=== PATIENT | female | born 1960 | race Caucasian/White ===

== ENCOUNTER → 2023-01-20 | Outpatient (CLI) | payer MEDICARE ==
[2023-01-20 10:12] VITALS: BP 143/93; PULSE 91; RESP 16; TEMP 97.9
--- NOTE | 2023-01-20 13:11 | P.PAINPG ---
PQRS Measure Charge Sheet Comment: HISTORY OF PRESENT ILLNESS: 62 yr old female as a referral from Dr Sinha presents today w severe and chronic LBP x 3 yrs secondary to anterolisthesis, DDD and facet arthropathy without myelopathy for evaluation. Pt states she underwent a BL RFA L4-L5 L5-S1 in [place] in Jul 2022 where she experienced 70% pain relief x 5-6 mo s/p procedure. Pt states pain level is provoked at 7 /10 in intensity, constant, localized in the lower lumbar spine, in character w shooting pain towards the L & R midline. Pain is provoked by weight bearing activity. Pain is alleviated by chiropractic treatments 15 yrs ago, physician guided home exercises from Dr Sinha 5 times weekly x 3 mo, heat, ice, medications (Xtampza, Percocet, Neurontion), repositioning and rest. Oswestry axial pain score at 26 . PMH: OA, Hyperlipidemia, Hypothyroidism, Peripheral Neuropathy, GERD PSH: BL RFA L3-L5 (2020, 2021), Uterine Ablation (1995) SH: Negative x 3. Lives w fiance. FH: Uncle- CA. Aunt - Breast CA. Mo- MS. Fa- MS. All: See list Meds: See list REVIEW OF ORGAN SYSTEMS: CONSTITUTIONAL: No fevers or chills. No recent weight loss. NEUROLOGICAL: + numbness and tingling along the distal extremities. No seizure disorders or headaches. MUSCULOSKELETAL: + pain PSYCHIATRIC: Denies current depression or suicidal thoughts. Physical Examinations : Constitutional : Cooperative , not in acute distress . Neurologic : Cranial nerve II to XII intact. No focal neurological deficits. Psychiatric : alert & oriented x 3. Matching mood & appropriate affect. Judgment & insight intact. Musculoskeletal : Cervical Spine Motor strength in the deltoid and biceps: Normal right side. Normal Left side Motor strength biceps and the wrist extensors: Normal right side . Normal left side Motor strength in the triceps muscle: Normal right side. Normal left side Deep tendon reflexes: Normal at the biceps. Normal at Brachioradialis. Normal at triceps Vertebral body tenderness to deep palpation over Cervical facet loading test: positive bilaterally Spurling test: positive bilaterally Neck distraction test: positive bilaterally Esme sign: positive bilaterally Lumbar spine Motor strength lower extremities ,thigh and legs 5/5 Right side , 5/5 Left side Deep tendon reflexes : Normal Knee Jerk. Normal Ankle Jerk Vertebral body tenderness over Menjivar Test positive Lumbar facet Loading Test: positive Right / positive Left over BL L4-L5, L5-S1 Range of motion of the lumbar spine Flexion 30 degrees, extension 10 degrees Straight Leg Raise test: Left/ Right positive at degree Yousif test: positive right / positive left. Severe tenderness over the Sacroiliac joint on the Right / Left sides Gaenslen test: positive bilaterally Seated flexion test: positive bilaterally. Sacral spine : Severe tenderness over the Sacroiliac joint: right side / left side Range of motion: Flexion of the lumbar spine <60 degrees Range of motion: Extension of the lumbar spine <20 degrees Gaenslen's Test positive Frandy's Test positive Yousif test: positive right side / left side Thigh Thrust Test Sacral Thrust Test Imaging: MRI noncontrast of the lumbar spine from 08/28/22 reviewed Assessment/ Plan : Lumbar anterolisthesis Recommendation of BL RFA L4-L5, L5-S1. Pt exhibited substantial pain relief w prior BL RFA L3-L5 procedure. Risks, benefits of procedure discussed and patient verbalized understanding. Admits to aspirin or anti- coagulant use or medical history of diabetes. Protocol for discontinuation/ continuation of medications rika procedure discussed. Minimal anesthesia provided, if clinically indicated, consisting of Versed and Fentanyl. All questions answered. I have spent greater than 30 minutes on patient care today. Dr Pruitt was available by phone for the evaluation of this patient. The time was used to review the medical records including relevant urine studies and Prescription history (MAPs), review of the available imaging, evaluation and examination of the patient, coordination of care with the medical staff and if applicable referring physicians, as well as creation of the medical record Controlled Substance Measures - Controlled Substance Measures Is patient prescribed a controlled substance at discharge?: No
== END ==
LOC: PNWHC3 09:08
PROVIDERS: ATTEND Specialist
DX: M51.37 Other intervertebral disc degeneration, lumbosacral region (principal); M43.16 Spondylolisthesis, lumbar region; G89.29 Other chronic pain
CPT/HCPCS: 99202

== ENCOUNTER → 2023-02-05 | Day surgery (SDC) | payer MEDICARE ==
[2023-02-02 10:51] VITALS: BMI 28.1
[~2023-02-05] MED LIST: LACTATED RINGERS 1,000 ML IV SCH; MIDAZOLAM 2 MG/2 ML VIAL ONE; ROPIVACAINE 5MG/ML 20ML VIAL ONE; fentaNYL (PF) 50 MCG/ML 2 ML AMP ONE; methylPREDNISolone ACETATE 40 MG/ML 1 ML VIAL ONE
[2023-02-05 08:32] VITALS: TEMP 98.2
--- NOTE | 2023-02-05 09:43 | P.PCN ---
Date of Procedure: 02/05/23 Procedure(s) Performed: PREOPERATIVE DIAGNOSIS: 1-Lumbar Spondylosis with Facet Arthropathy without myelopathy. 2- Lumber degenerative disc disease. POSTOPERATIVE DIAGNOSIS: 1- Lumbar Spondylosis with Facet Arthropathy without myelopathy. 2- Lumber degenerative disc disease. PROCEDURES : Bilateral Radiofrequency thermocoagulation, L3 , L4 , and L5 medial branch, with fluoroscopic guidance (fluoroscopy images available in the radiology department) ( to denervate the facet joint at bilateral L4-5 ,and L5-S1 levels ). ANESTHESIA: Monitored anesthesia care as per anesthesia department . EBL: Minimal PROCEDURE INDICATION: The patient with low back pain secondary to lumbar facet arthropathy who had more than 50% relief of her pain with previous diagnostic lumbar medial branch block with bupivacaine. PROCEDURE DESCRIPTION / TECHNIQUE: The patient was seen and identified in the preoperative area. Risks, benefits, complications, including but not limited to risk of infection ,bleeding , allergic reactions to the medications and no complete pain releife , and alternatives were discussed with the patient, the patient agreed to proceed with the procedure and signed the consent. IV was started. Vital signs remained stable throughout the procedure. Patient was taken to the OR and time out was completed. The patient was placed in the prone position on the procedure table. The lumber area was prepped and draped in the usual sterile fashion. . Vital signs were closely monitored during the procedure .IV sedation was used during the procedure to decrease patients anxiety. Using AP and then oblique fluoroscopy, the ``eye of the Too dog cor responding to the connection between the superior and transverse articular processes of right L3, L4, and L5 were identified, marked, and localized with 1% lidocaine. Subsequently, a 18 -os radiofrequency cannula with a 10- mm active tip was advanced guided by fluoroscopy to each of the``eyes of the Too dog at right L3, L4, and L5. Each site then underwent sensory testing at 50 Hz and 0 to 1 volt and motor testing at 2.5 Hz and 0 to 3 volt with local stimulation, but no radicular symptoms down the legs. Thereafter each sites underwent radiofrequency thermocoagulation at 80 degrees celsius for 90 seconds after injecting 0.5 ml of PF Ropivacaine 1ml, then after the thermocoagulation done , 1 ml of the block solution containing Depo-Medrol 20 mg and 3 ml of Ropivacaine 0.5% was injected at the right L3 , L4 , and L5 , levels after negative aspiration of CSF and blood and with no paresthesias. Cannulas were retracted while injecting lidocaine 1% until the needle is out. The same procedure was repeated at the level of Left L3, L4, and L5 levels. At the end of the procedure, the skin was cleansed and bandages were applied. COMPLICATIONS: No acute complications. DISPOSITION / PLANS: The patient was placed in a supine position and transferred to the recovery area in a stable condition for observation and was discharged from the recovery room after meeting discharge criteria. Home discharge instructions given to the patient by the staff. The patient was reexamined prior to discharge. The patient will schedule a follow up in the clinic in 2-4 weeks.
[2023-02-05 10:07] VITALS: BP 136/87; PULSE 77; RESP 14
--- NOTE | 2023-02-05 11:49 | FL ---
Intraoperative/procedural fluoroscopic services were provided. Total fluoroscopy time is 20 seconds w ith a total of 9 submitted images to PACS. Please see the operative/procedural note for further detai ls. DAP: [id number] mGym2
== END ==
LOC: ORPAIN 08:13
DX: M47.816 Spondylosis without myelopathy or radiculopathy, lumbar region (principal); M51.36 Other intervertebral disc degeneration, lumbar region; E78.5 Hyperlipidemia, unspecified; E07.9 Disorder of thyroid, unspecified; K21.9 Gastro-esophageal reflux disease without esophagitis; M19.90 Unspecified osteoarthritis, unspecified site; Z79.890 Hormone replacement therapy; Z91.040 Latex allergy status; Z79.899 Other long term (current) drug therapy
CPT/HCPCS: 64635; 64636; J2250; J1030; J3010; J2795

== ENCOUNTER → 2023-03-25 | Outpatient (CLI) | payer MEDICARE | LOC: PNWHC3 09:44 | PROVIDERS: ATTEND Anesthesiology | DX: Z53.9 Procedure and treatment not carried out, unspecified reason (principal) ==

== ENCOUNTER → 2023-08-04 | Outpatient (CLI) | payer MEDICARE ==
[2023-08-04 08:55] VITALS: BP 143/80; PULSE 102; RESP 17; TEMP 97.8
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
== END ==
LOC: WWCWWP 08:15
PROVIDERS: ATTEND Obstetrics & Gynecology
DX: Z12.31 Encounter for screening mammogram for malignant neoplasm of breast (principal); N84.1 Polyp of cervix uteri; R03.0 Elevated blood-pressure reading, without diagnosis of hypertension; E03.9 Hypothyroidism, unspecified; E78.5 Hyperlipidemia, unspecified; K21.9 Gastro-esophageal reflux disease without esophagitis; M19.90 Unspecified osteoarthritis, unspecified site; M51.9 Unspecified thoracic, thoracolumbar and lumbosacral intervertebral disc disorder; M54.9 Dorsalgia, unspecified; G43.909 Migraine, unspecified, not intractable, without status migrainosus; G44.89 Other headache syndrome; Z78.0 Asymptomatic menopausal state; Z87.42 Personal history of other diseases of the female genital tract; Z79.890 Hormone replacement therapy; Z80.3 Family history of malignant neoplasm of breast; Z91.040 Latex allergy status; Z87.39 Personal history of other diseases of the musculoskeletal system and connective tissue; Z87.81 Personal history of (healed) traumatic fracture; Z87.891 Personal history of nicotine dependence
CPT/HCPCS: 77063; 77067

== ENCOUNTER → 2023-08-11 | Outpatient (CLI) | payer MEDICARE ==
--- NOTE | 2023-08-11 14:49 | MM ---
Reason for Exam: Additional evaluation requested from abnormal screening. Last screening mammogram was performed less than 1 month ago. Patient History: Menarche at age 14. First Full-Term at age 20. Postmenopausal. Hormonal Contraceptives, from age 21 until age 25. Maternal aunt had breast cancer under age 50. Risk Values: Eloise 5 year model risk: 1.1%. NCI Lifetime model risk: 5.2%. Prior Study Comparison: 08/04/2023 Bilateral MG 3D screening mammo w/cad, [facility]. Tissue Density: Left: There are scattered fibroglandular densities. Findings: Analyzed By CAD. Pattern is unchanged from comparison. Under compression the small bowel distortion in the left medial lateral oblique view appears to completely resolve. Some mild residual may remain on the craniocaudal compression. Medial lateral view appears unremarkable. Follow-up ultrasound is recommended. Overall Assessment: Benign, BI-RAD 2 Management: Diagnostic Breast Ultrasound of the left breast. A negative mammogram report should not preclude additional follow up of suspicious palpable abnormalities. Patient should continue monthly self breast exam. A clinical breast exam by your physician is recommended on an annual basis and results should be correlated with mammographic findings. Electronically signed and approved by: Eduard Goldman D.O. Radiologis
--- NOTE | 2023-08-11 14:52 | USB ---
Reason for Exam: Additional evaluation requested from abnormal screening. Patient History: Menarche at age 14. First Full-Term at age 20. Postmenopausal. Hormonal Contraceptives, from age 21 until age 25. Maternal aunt had breast cancer under age 50. Risk Values: Eloise 5 year model risk: 1.1%. NCI Lifetime model risk: 5.2%. Technique: Method: Targeted. Prior Study Comparison: 08/04/2023 Bilateral MG 3D screening mammo w/cad, [facility]. Findings: The upper outer quadrant of the left breast, the axilla of the left breast and the retroareolar of the left breast were scanned. There appears to be a lymph node in the upper outer aspect posterior left breast 3:00 position 6 cm from the nipple. Vascularity hilum appears to be present. This may correlate with the mammogram. The mid portion posterior left breast no distortion or abnormality by ultrasound is evident correlate with the mammographic findings.. Overall Assessment: Benign, BI-RAD 2 Management: Diagnostic Mammogram of the left breast in 6 months. A clinical breast exam by your physician is recommended on an annual basis and results should be correlated with mammographic findings. This exam should not preclude additional follow-up of suspicious palpable abnormalities. Results were given to the patient verbally at the time of exam. Electronically signed and approved by: Eduard Goldman D.O. Radiologis
== END | disposition home or self-care (01) ==
LOC: RADMAMWWP 13:53
PROVIDERS: ATTEND Obstetrics & Gynecology
DX: R92.322 Mammographic fibroglandular density, left breast (principal); Z78.0 Asymptomatic menopausal state; Z80.3 Family history of malignant neoplasm of breast
CPT/HCPCS: 77065; 76642; G0279; 77061

== ENCOUNTER → 2024-02-16 | Day surgery (SDC) | payer MEDICARE, OTHER ==
[2024-02-16 11:33] VITALS: TEMP 98.2
[2024-02-16 12:12] VITALS: BP 132/88; PULSE 80; RESP 17
--- NOTE | 2024-02-16 12:12 | P.PCN ---
Date of Procedure: 02/16/24 Preoperative Diagnosis: Cervical polyps Postoperative Diagnosis: Same Procedure(s) Performed: Removal of cervical polyps Anesthesia: none Surgeon: Jaison Jacinto Estimated Blood Loss (ml): 1 Pathology: other (Cervical polyps) Condition: stable Disposition: same day Indications for Procedure: This was a 64-year-old menopausal female who was experiencing occasional postcoital spotting. On exam the patient was found to have 2 endocervical polyps measuring about 8 mm and 5 mm in size. Her Pap smear cotest on 08/04/2023 was negative. Operative Findings: 2 adjacent endocervical polyps were found measuring approximately 8 mm and 5 mm in size. They were adjacent to each other and were attached at approximately the 5 o'clock position at the border of the Endo cervix and ectocervix. Upon grasping the polyps, a mucus type material was released. Description of Procedure: Prior to the procedure, we discussed the procedure and possible risks including bleeding and infection. All questions were answered. Procedure blood pressure was 134/84, pulse 89, height 5 feet 2 inches, weight 172 pounds, temperature 98.2 and pulse oximeter 97%. The patient was placed in the lithotomy position and a speculum was inserted into the vagina. The cervix and vagina were prepped with Betadine solution. The polypoid growths were grasped with forceps and upon doing so, the polyps ruptured and released a mucus type material. The polyps were then removed with a cervical biopsy instrument in 4 separate pieces. Polypoid tissue was no longer present at this site. There was a small amount of bleeding which was made hemostatic with silver nitrate sticks. Patient tolerated procedure well. Estimated blood loss was 1 cc. There were no complications. Post procedure blood pressure was 132/88, pulse 80 and pulse oximeter 100%. Patient was advised to avoid all sexual activity for 2 weeks and not to insert anything into the vagina. Patient will also avoid walking or running for exercise at this time. Patient was instructed to call if she has heavy bleeding, unusual pain, fever, or problems. The polypoid tissue was sent for pathological examination.
--- NOTE | 2024-02-16 12:13 | P.PN ---
Progress Note - Text Progress Note Date: 02/16/24 At the time of her cervical polyp removal, I reminded the patient that she is due for a 6-month left diagnostic mammogram and ultrasound. The order slip was given to the patient for this and she states she will schedule this today.
--- NOTE | 2024-02-29 17:57 | P.PN ---
Progress Note - Text Progress Note Date: 02/29/24 OUTPATIENT FOLLOW-UP NOTE TEST(S)/RESULTS: Test results from 02/16/2024 include pathology report revealing benign endocervical polyp fragments. METHOD OF NOTIFICATION: The patient was notified by phone on 02/29/2024. PATIENT COMMENTS: She is happy to hear these results. She had minimal bleeding after the procedure and denies problems. DIAGNOSIS: Benign endocervical polyp. DISCUSSION: She can resume normal activities and she is to call if there are any problems. PLAN: She was advised to return in one year for her annual well woman exam.
== END ==
LOC: WWCWWP 10:53
PROVIDERS: ATTEND Obstetrics & Gynecology
DX: N84.1 Polyp of cervix uteri (principal); Z78.0 Asymptomatic menopausal state
CPT/HCPCS: 88305